=== PATIENT | female | born 1965 | race Caucasian/White ===

== ENCOUNTER → 2017-01-19 | Outpatient (CLI) | payer OTHER, MEDICARE ==
[~2017-01-19] MED LIST: CALCIUM500 MG PO; DAILY MULTIPLE1 EAC1 PO; DILAUDID2 MG PO; ESZOPICLONE3 MG PO; FLEXERIL-DPS10 MG PO; FLONASE 0.05% D16 GM NS; FLOVENT 44MCG10.6 GM NS; LISINOPRIL5 MG PO; MIRALAX PACKET17 GM PO; NUCYNTA ER50 MG PO; OYSTER SHELL C500 MG PO; PLAQUENIL DPS200 MG PO; PRILOSEC DPS20 MG PO; PROZAC DPS20 MG PO; SENNA S TABLET1 EACH PO; THERA1 EACH PO; TIZANIDINE HCL2 M1 PO; TIZANIDINE HCL2 MG PO; TYLENOL DPS325 MG PO; VALIUM-DPS5 MG PO; VALIUM5 MG PO; VITAMIN B COMP1 EACH PO; VITAMIN B-121000 MCG PO; ZESTRIL DPS5 MG PO; [UNRECOGNIZED DRUG - OTHER] PO
--- NOTE | 2017-02-02 10:55 | OR ---
ADMIT: 01/19/2017 RM/LOC: [facility] MR#: [id number] [facility] [address] [place] [id number] [place] [address] Operative/Delivery Room Report SEX: F AGE: 51 : 1965 SURGERY DATE: 01/19/2017 SURGEON: Bruno Oconnell MD PREOPERATIVE DIAGNOSIS: Right shoulder labral pathology. POSTOPERATIVE DIAGNOSIS: Right shoulder labral pathology. PROCEDURE: Right fluoroscopic guided glenohumeral joint injection with 8 of lidocaine 1% and 2 of Kenalog 40. INDICATION: Tyshawn has right shoulder pain that is consistent with bursitis. We did do an injection around the bursa, did not get any real relief. We did an MRI, which showed bursitis but also showed some glenohumeral joint pathology with some chondromalacia and labral fraying, so we offered her glenohumeral joint injection specifically under fluoroscopic guidance to rule out that as being her main pain generator, so she is here for that today. DESCRIPTION OF PROCEDURE: The patient was identified in the fluoroscopy suite, and written informed consent was confirmed. We had her lying on the fluoro table. Digital time-out and then cleaned with ChloraPrep and then brought a spinal needle in under fluoroscopy. Identified it over the glenohumeral joint. Placed it within the joint and confirmed that with fluoroscopy and then injected 8 of lidocaine and 2 of Kenalog into the joint. This went in nice and easy. She tolerated it very well. Put a Band-Aid on. I will see her back in a couple weeks to see what the results of that or if this helps her at all. Bruno Oconnell MD/ juju JOB #: [id number] CC: Brnuo Oconnell MD, Attending Physician Luli Bates MD, Family Physician
== END | disposition home or self-care (01) ==
LOC: RAD.S 08:56
PROC: 0R9J3ZZ Drainage of Right Shoulder Joint, Percutaneous Approach (ICD-10-PCS; principal; 2017-01-19)
DX: M25.511 Pain in right shoulder (principal); M54.2 Cervicalgia